=== PATIENT | female | born 1995 | race Caucasian/White ===

== ENCOUNTER 2019-04-06 13:26 | Emergency (ER) | payer OTHER ==
[2019-04-06 13:32] VITALS: BP 119/81; PULSE 85; TEMP 98; BMI 27.4
--- NOTE | 2019-04-06 14:00 | PDOC ---
History of Present Illness - General Chief Complaint: Injury Stated Complaint: RT HAND RING FINGER STUCK Time Seen by Provider: 04/06/19 13:37 Exam Limitations: No Limitations - History of Present Illness Initial Comments: 04/06/19 14:05 23 year old female with swelling to right ring finger due to ring being stuck on it since yesterday. Denies medical or surgical history, also reports no numbness or tingling to tips of fingers. Occurred: reports: yesterday Severity: reports: moderate Upper Extremity Pain Location: right: 4th finger Method of Injury: reports: other (ring) Modifying Factors: improves with: immobilization Extremity Pain Location - Extremity Pain Location Extremity Pain Locations: right: 4th finger Past History - Travel Traveled outside of the country in the last 30 days: No Close contact w/someone who was outside of country & ill: No - Past Medical History Allergies/Adverse Reactions: Allergies Allergy/AdvReac Type Severity Reaction Status Date / Time No Known Allergies Allergy Verified 04/06/19 13:32 Home Medications: Ambulatory Orders NK [No Known Home Medication] 08/22/17 COPD: No - Psycho Social/Smoking Cessation Hx Smoking History: Never smoked Hx Alcohol Use: No Drug/Substance Use Hx: No Review of Systems - Review of Systems Able to Perform ROS?: Yes Is the patient limited Belgian proficient: No Constitutional: No: Chills, Fever HEENTM: No: Cataracts, Ear Pain, Difficulty Swallowing Respiratory: No: Orthopnea, Stridor, Wheezing Cardiac (ROS): No: Chest Pain, Lightheadedness ABD/GI: No: Poor Appetite, Poor Fluid Intake : No: Dysuria, Incontinence, Testicular Swelling, Lesions Integumentary: Yes: Other (swelling of right 4th digit) Neurological: No: Headache, Numbness Psychiatric: No: Stressors, Change in Appetite *Physical Exam - Vital Signs Last Vital Signs Temp Pulse Resp BP Pulse Ox 98 F 85 18 119/81 99 04/06/19 13:29 04/06/19 13:29 04/06/19 13:29 04/06/19 13:29 04/06/19 13:29 - Physical Exam General Appearance: Yes: Nourished, Appropriately Dressed HEENT: positive: OTTO, TMs Normal, Pharynx Normal Neck: positive: Supple. negative: Lymphadenopathy (R), Lymphadenopathy (L) Respiratory/Chest: positive: Lungs Clear Cardiovascular: positive: Regular Rhythm, Regular Rate Extremity: positive: Normal Capillary Refill, Swelling (right 4th digit with silver band on finger) Neurologic: positive: Fully Oriented, Normal Response Medical Decision Making - Medical Decision Making 04/06/19 14:09 23 year old female with swelling to right ring finger due to ring being stuck on it since yesterday. Denies medical or surgical history, also reports no numbness or tingling to tips of fingers. swelling to right 4th finger -ring removed Discharge - Discharge Information Problems reviewed: Yes Clinical Impression/Diagnosis: Foreign body of finger of right hand Qualifiers: Encounter type: initial encounter Qualified Code(s): S60.459A - Superficial foreign body of unspecified finger, initial encounter Condition: Good Disposition: HOME - Admission No - Follow up/Referral - Patient Discharge Instructions - Post Discharge Activity Work/Back to School Note: Back to Work
== END 2019-04-06 14:06 | disposition home or self-care (01) ==
LOC: JERFT 13:26
DX: S60.444A External constriction of right ring finger, initial encounter (principal); W49.04XA Ring or other jewelry causing external constriction, initial encounter; Y93.89 Activity, other specified; Y92.038 Other place in apartment as the place of occurrence of the external cause; Y99.8 Other external cause status
CPT/HCPCS: 99281-25

== ENCOUNTER 2019-05-19 23:14 | Emergency (ER) | payer OTHER ==
[2019-05-19 23:26] VITALS: BP 137/92; PULSE 88; TEMP 98.5; BMI 26.6
[2019-05-20] MEDS ORDERED: ONDANSETRON 4 MG/2 ML VIAL IVPUSH ONE (00:17)
[2019-05-20] MEDS ORDERED: FAMOTIDINE 20 MG TABLET PO ONE (00:44)
[2019-05-20] MEDS ORDERED: ALBUTEROL SO4 2.5/IPRATROPIUM 0.5 INH SOL 3 ML VIAL.NEB. NEB ONE ×2 (00:44→00:52)
--- NOTE | 2019-05-20 00:46 | PDOC ---
Documentation entered by Kelsie Rivera SCRIBE, acting as scribe for Nhi Gaona MD. Nhi Gaona MD: This documentation has been prepared by the Nicole meyer Nirvannie, SCRIBE, under my direction and personally reviewed by me in its entirety. I confirm that the documentation accurately reflects all work, treatment, procedures, and medical decision making performed by me. Attending Attestation - Resident Resident Name: RigobertoFrederick - ED Attending Attestation I have performed the following: I have examined & evaluated the patient, The case was reviewed & discussed with the resident, I agree w/resident's findings & plan, Exceptions are as noted - HPI HPI: 05/20/19 01:01 The patient is a 23 year old female with no significant past medical history, who presents to the emergency department with 1 week of progressively worsening pleuritic chest pain and shortness of breath. As per patient, her symptoms have been worsening over the past two days. She notes associated nausea and diarrhea which has since resolved. She denies recent fevers, chills, headache or dizziness. She denies recent dysuria, frequency, urgency or hematuria. Allergies: NKDA - Physicial Exam PE: GENERAL: Awake, alert, and fully oriented, in no acute distress HEAD: No signs of trauma EYES: PERRLA, EOMI, sclera anicteric, conjunctiva clear ENT: Auricles normal inspection, hearing grossly normal, nares patent, oropharynx clear without exudates. Moist mucosa NECK: Normal ROM, supple, no lymphadenopathy, JVD, or masses LUNGS: Slightly decreased air entry B/L. Breath sounds clear to auscultation bilaterally. No wheezes, and no crackles HEART: Regular rate and rhythm, normal S1 and S2, no murmurs, rubs or gallops ABDOMEN: Soft, nontender, normoactive bowel sounds. No guarding, no rebound. No masses EXTREMITIES: Normal range of motion, no edema. No clubbing or cyanosis. No cords, erythema, or tenderness NEUROLOGICAL: Cranial nerves II through XII grossly intact. Normal speech, normal gait. Motor and sensation intact SKIN: Warm, dry, normal turgor, no rashes or lesions noted. - Medical Decision Making CXR reviewed, no acute findings. Symptoms are likely related to recent viral URI. Low risk for PE, ACS by clinical eval. Heart Score/ECG Review - ECG Impressions Comment:: EKG read 23:24- NSR 83 bpm, T wave inv V2, flattening in V3.
--- NOTE | 2019-05-20 00:51 | PDOC ---
History of Present Illness - General Stated Complaint: SOB Time Seen by Provider: 05/19/19 23:51 History Source: Patient Exam Limitations: No Limitations - History of Present Illness Initial Comments: 23 y/o F, no significant pmh, presents to the ED c/o of difficulty breathing, chest pain on inspiration and nausea of 1 week duration that has worsened in the last 2 days. As per pt, she came to the ED 1 week ago for chest pain on inspiration but eloped at the time. Her symptoms have been present since then. She did not take any medication for her symptoms. She also states that her nausea occurs every time she has acid reflux, which has increased in frequency recently. She has not been formally diagnosed with asthma or GERD. She admits to nausea, diarrhea which has now resolved. Denies f/c/v/abdominal pain, recent sick contacts, recent travels. 05/20/19 00:46 Associated Symptoms: reports: denies symptoms, chest pain (only on inspiration ) , nausea/vomiting, shortness of breath. denies: cough, diaphoresis, fever/ chills, headaches Past History - Past Medical History Allergies/Adverse Reactions: Allergies Allergy/AdvReac Type Severity Reaction Status Date / Time No Known Allergies Allergy Verified 05/19/19 23:27 Home Medications: Ambulatory Orders Albuterol Sulfate Inhaler - [Ventolin HFA Inhaler -] 1 - 2 inh PO Q4H #1 inhaler 05/20/19 COPD: No - Surgical History Appendectomy: Yes - Immunization History Immunization Up to Date: Yes - Psycho Social/Smoking Cessation Hx Smoking History: Never smoked Have you smoked in the past 12 months: No Hx Alcohol Use: No Drug/Substance Use Hx: No Review of Systems - Review of Systems Able to Perform ROS?: Yes Is the patient limited Hebrew proficient: No Constitutional: Yes: Symptoms Reported, Weight Stable. No: Chills, Diaphoresis , Fever HEENTM: Yes: Symptoms Reported. No: Eye Pain, Blurred Vision, Mouth Pain Respiratory: Yes: Symptoms reported, Cough (dry cough which has decreased in frequency ), Shortness of Breath. No: SOB with Exertion, SOB at Rest, Wheezing Cardiac (ROS): Yes: Symptoms Reported, Chest Pain (chest pain on inspiration) ABD/GI: Yes: Nausea. No: Abdominal Distended, Diarrhea, Vomiting : Yes: Symptoms Reported. No: Burning, Dysuria Musculoskeletal: Yes: Symptoms Reported. No: Neck Pain Neurological: Yes: Symptoms reported. No: Headache, Numbness All Other Systems: Reviewed and Negative *Physical Exam - Vital Signs Last Vital Signs Temp Pulse Resp BP Pulse Ox 98.5 F 88 22 H 137/92 96 05/19/19 23:19 05/19/19 23:19 05/19/19 23:19 05/19/19 23:19 05/19/19 23:19 - Physical Exam General Appearance: Yes: Nourished, Appropriately Dressed HEENT: positive: EOMI, OTTO, Normal ENT Inspection, Pharynx Normal, Nasal Congestion Neck: positive: Trachea midline, Normal Thyroid, Supple Respiratory/Chest: positive: Lungs Clear, Normal Breath Sounds. negative: Chest Tender (nonreproducible chest pain on inspiration), Crackles, Wheezing Cardiovascular: positive: Regular Rhythm, Regular Rate, S1, S2. negative: Murmur, Gallop/S3, Gallop/S4 Vascular Pulses: Dorsalis-Pedis (R): 2+, Doralis-Pedis (L): 2+ Gastrointestinal/Abdominal: positive: Normal Bowel Sounds, Soft. negative: Distended, Guarding, Tenderness Neurologic: positive: Fully Oriented, Alert ED Treatment Course - RADIOLOGY Radiology Studies Ordered: Category Date Time Status CHEST PA & LAT [RAD] Stat Radiology 05/20/19 00:12 Ordered Medical Decision Making - Medical Decision Making 23 y/o F, no significant pmh, presents to the ED c/o of difficulty breathing, chest pain on inspiration and nausea of 1 week duration that has worsened in the last 2 days #Difficulty breathing likely 2/2 to URI vs seasonal asthma CXR ordered Dounebs treatment Flu swab CBC Rapid strep ordered #Chest pain on inspiration likely 2/2 to coughing and acid reflux EKG NSR, nonspecific T wave changes #Nausea 2/2 to acid reflux Pepcid given Zofran 05/20/19 00:53 05/20/19 00:56 05/20/19 00:57 Discharge - Discharge Information Problems reviewed: Yes Clinical Impression/Diagnosis: Difficulty breathing Condition: Improved Disposition: HOME - Admission No - Additional Discharge Information Prescriptions: Albuterol Sulfate Inhaler - [Ventolin HFA Inhaler -] 1 - 2 inh PO Q4H #1 inhaler - Follow up/Referral Referrals: Demarcus Noriega MD [Staff Physician] - - Patient Discharge Instructions Patient Printed Discharge Instructions: DI for Gastroesophageal Reflux Disease (GERD), DI for Viral Upper Respiratory Infection -- Adult Additional Instructions: You were seen in the emergency room for difficulty with breathing and acid reflux While in the emergency room, we evaluated you with lab work, blood work, and imaging including x rays of your chest. We found that your symptoms were likely caused by an upper respiratory tract infection. Your nausea was caused by acid reflux. We gave you medications and your symptoms improved. Please take all your medications as prescribed Please follow up with your primary care physician in 1 week Return to the emergency room if you experience worsening of your symptoms, chest pain, difficulty breathing, or any worsening of your condition. - Post Discharge Activity
[2019-05-20] MEDS ORDERED: FAMOTIDINE 20 MG TABLET ONE (00:52)
--- NOTE | 2019-05-22 12:43 | EKG ---
Test Reason : Blood Pressure : / mmHG Vent. Rate : 083 BPM Atrial Rate : 083 BPM P-R Int : 152 ms QRS Dur : 088 ms QT Int : 374 ms P-R-T Axes : 055 066 058 degrees QTc Int : 439 ms NORMAL SINUS RHYTHM WITH SINUS ARRHYTHMIA NORMAL ECG WHEN COMPARED WITH ECG OF 22-AUG-2017 05:05, NO SIGNIFICANT CHANGE WAS FOUND Confirmed by MD Jefry, Jl ([id number]) on 05/22/2019 12:43:32 PM Referred By: Confirmed By:Jl Capps MD
== END 2019-05-20 01:57 | disposition home or self-care (01) ==
LOC: JER 23:14
PROC: 3E0F7GC Introduction of Other Therapeutic Substance into Respiratory Tract, Via Natural or Artificial Opening (ICD-10-PCS; principal; 2019-05-19)
DX: J06.9 Acute upper respiratory infection, unspecified (principal); K21.9 Gastro-esophageal reflux disease without esophagitis
CPT/HCPCS: 71046-TC-FY; 93005; 93010; 94640; 99282-25

== ENCOUNTER 2019-06-15 22:45 | Emergency (ER) | payer OTHER ==
[2019-06-15 22:53] VITALS: BP 137/85; PULSE 101; TEMP 98.4; BMI 25.7
--- NOTE | 2019-06-15 23:57 | PDOC ---
History of Present Illness - General Chief Complaint: Abscess Boil Stated Complaint: ABSCESS Time Seen by Provider: 06/15/19 23:57 - History of Present Illness Initial Comments: HPI: 23yo F with PMH of GERD presenting with abscess on her right buttock. Patient states she has had an abscess in this area before, last in summer 2018, and this abscess was drained by a physician. Her current abscess has not drained any discharge but has become increasingly tender over the last couple days. Currently on her menstrual period. No urinary or bowel complaints. No history of poor wound healing. Denies fever or chills. ROS: Constitutional: no fever, no chills HEENT: no throat pain, no dysphagia Cardiovascular: no chest pain, no palpitations Respiratory: no cough, no shortness of breath Gastrointestinal: no abdominal pain, no nausea Genitourinary: no dysuria, no hematuria Musculoskeletal: no myalgia, no arthralgia Skin: no rash, +abscess Neurologic: no headache, no weakness Psych: no agitation, no anxiety PE: General: Awake, alert, and fully oriented, in no acute distress Head: No signs of trauma Eyes: EOMI, sclera anicteric ENT: Moist mucus membranes Neck: Normal ROM, supple Lungs: Lungs clear, Normal breath sounds Cardio: Regular rhythm, S1 and S2 present Abdomen: Soft, nontender. No guarding, no rebound, no masses Extremities: Normal range of motion, Distal pulses present SKIN: Warm, Dry, normal turgor; 2.5cm area of erythema/tenderness/fluctuance to the right buttock in the gluteal fold without anorectal involvement, drainage, or head Neurologic: Cranial nerves II through XII grossly intact. Normal speech ED Course/MDM: DDX including but not limited to abscess, cellulitis, inflammation Presentation consistent with abscess Bedside US showing fluid-filled pocket, however area still appears deep Patient decided to defer I&D today and will instead soak for 2 days To return to ED for eventual I&D Antibiotics prescription sent to her pharmacy Return precautions Past History - Past Medical History Allergies/Adverse Reactions: Allergies Allergy/AdvReac Type Severity Reaction Status Date / Time No Known Allergies Allergy Verified 06/16/19 00:31 Home Medications: Ambulatory Orders Albuterol Sulfate Inhaler - [Ventolin HFA Inhaler -] 1 - 2 inh PO Q4H #1 inhaler 05/20/19 Clindamycin [Cleocin -] 300 mg PO TID #21 capsule 06/16/19 COPD: No GI Disorders: Yes (acid reflux) - Surgical History Appendectomy: Yes - Immunization History Immunization Up to Date: Yes - Psycho Social/Smoking Cessation Hx Smoking History: Never smoked Have you smoked in the past 12 months: No Hx Alcohol Use: No Drug/Substance Use Hx: No *Physical Exam - Vital Signs Last Vital Signs Temp Pulse Resp BP Pulse Ox 98.4 F 101 H 18 137/85 99 06/15/19 22:51 06/15/19 22:51 06/15/19 22:51 06/15/19 22:51 06/15/19 22:51 Discharge - Discharge Information Problems reviewed: Yes Clinical Impression/Diagnosis: Abscess Condition: Stable Disposition: HOME - Additional Discharge Information Prescriptions: Clindamycin [Cleocin -] 300 mg PO TID #21 capsule - Follow up/Referral - Patient Discharge Instructions Patient Printed Discharge Instructions: DI for Skin Abscess Additional Instructions: You came into the emergency department for a rectal abscess. We saw a pocket of fluid on the ultrasound but the area was still somewhat deep. You declined drainage today. Use [id number] sitz baths at home to provide comfort and help with the abscess. Antibiotics sent to your pharmacy. Take as instructed. This will help prevent infection but will not make the abscess go away. You can take [id number]-[id number] tylenol or motrin for pain. Follow the instructions on the medication bottle. Return to the emergency department in two days for abscess drainage. Immediate medical attention is required if you experience: profuse bleeding, fever or chills, or any new or concerning symptoms. If you think there is an emergency, call for emergency medical services or present to the emergency department right away - Post Discharge Activity Work/Back to School Note: Back to Work
--- NOTE | 2019-06-15 23:59 | PDOC ---
Attending Attestation - Resident Resident Name: Nhi Cabrera - ED Attending Attestation I have performed the following: I have examined & evaluated the patient, The case was reviewed & discussed with the resident, I agree w/resident's findings & plan - HPI HPI: 06/16/19 01:08 see resident hpi - Physicial Exam PE: 06/16/19 01:08 agree with resident exam - Medical Decision Making 06/16/19 01:09 23-year-old female with pain and tenderness to the right buttock without anal/ rectal involvement Bedside ultrasound confirmed likely fluid-filled pocket, most likely consistent with abscess Overlying skin is normal without pointing Patient was given the option of I&D today or soaking for 2 days and returning for I&D when more localized, she has opted to return She was advised that antibiotics will not cure this problem and it will require drainage at some point DC on clindamycin
== END 2019-06-16 01:28 | disposition home or self-care (01) ==
LOC: JER 22:45
PROC: BW4GZZZ Ultrasonography of Pelvic Region (ICD-10-PCS; principal; 2019-06-15)
DX: L02.31 Cutaneous abscess of buttock (principal)
CPT/HCPCS: 76857; 99282-25

== ENCOUNTER 2020-01-13 01:26 | Emergency (ER) | payer OTHER ==
[2020-01-13 01:48] VITALS: BP 123/85; PULSE 93; TEMP 100.1; BMI 23.3
--- NOTE | 2020-01-13 02:15 | PDOC ---
History of Present Illness - General Chief Complaint: Chest Pain Stated Complaint: CHEST PAIN Time Seen by Provider: 01/13/20 02:11 History Source: Patient Exam Limitations: No Limitations - History of Present Illness Initial Comments: 01/13/20 02:15 HPI: 24 yo F pmh GERD presenting with 1 month of reproducible left chest pain. Pain is sharp, non-pleuritic, non-exertional, improves with aspirin, minimal improvement with advil. Reproduced with pressure over the affected area. No family history of cardiac disease. No shortness of breath, fevers, chills, nausea, vomiting, abdominal pain, no recent GERD. No smoking, no hemoptysis, no leg pain or swelling, no immobilization, no OCPs / estrogen containing medications. Meds: Denies All: NKDA PMH: GERD PSH: Appendectomy remote SHx: Denies smoking, ETOH, Illicits Past History - Travel History Traveled outside of the country in the last 30 days: No Close contact w/someone who was outside of country & ill: No - Medical History Allergies/Adverse Reactions: Allergies Allergy/AdvReac Type Severity Reaction Status Date / Time candywi Allergy Verified 01/13/20 01:46 Home Medications: Ambulatory Orders Albuterol Sulfate Inhaler - [Ventolin HFA Inhaler -] 1 - 2 inh PO Q4H #1 inhaler 05/20/19 Clindamycin [Cleocin -] 300 mg PO TID #21 capsule 06/16/19 COPD: No GI Disorders: Yes (acid reflux) - Surgical History Appendectomy: Yes - Reproductive History Is Patient Now?: No - Immunization History Immunization Up to Date: Yes - Psycho-Social/Smoking History Smoking History: Never smoked Have you smoked in the past 12 months: No - Substance Abuse Hx (Audit-C & DAST Scrn) How often the patient has a drink containing alcohol: Monthly or less Score: In Men: 4 or > Positive; In Women: 3 or > Positive: 1 Screen Result (Pos requires Nsg. Audit-10AR): Negative Review of Systems - Review of Systems Able to Perform ROS?: Yes Is the patient limited Botswanan proficient: Yes Constitutional: No: Chills, Fever, Weakness HEENTM: No: Recent change in vision, Nose Congestion, Throat Pain Respiratory: No: Cough, Shortness of Breath, Wheezing Cardiac (ROS): Yes: Chest Pain. No: Edema, Irregular Heart Rate, Lightheadedness, Palpitations, Syncope, Chest Tightness ABD/GI: No: Constipated, Diarrhea, Nausea, Vomiting : No: Burning, Dysuria, Frequency Musculoskeletal: Yes: Back Pain, Muscle Pain. No: Muscle Weakness, Neck Pain Integumentary: No: Bruising, Pruritus, Rash Neurological: No: Headache, Numbness, Tingling, Weakness Psychiatric: No: Anxiety, Depression, Stressors, Change in Appetite Endocrine: No: Increased Thirst, Increased Urine, Change in Weight Hematologic/Lymphatic: No: Anemia, Blood Clots, Easy Bleeding All Other Systems: Reviewed and Negative *Physical Exam - Vital Signs Last Vital Signs Temp Pulse Resp BP Pulse Ox 100.1 F H 93 H 18 123/85 97 01/13/20 01:43 01/13/20 01:43 01/13/20 01:43 01/13/20 01:43 01/13/20 01:43 - Physical Exam 01/13/20 03:19 Vitals reviewed, AFVSS GEN: Well appearing, appears stated age, NAD, comfortable. AAOx3. HEENT: NCAT, EOMI, PERRL. Sclera anicteric, noninjected. No facial asymmetry. Moist mucous membranes. Normal voice. Trachea midline. CV: RRR, S1/S2, no murmurs / rubs / gallops appreciated. LUNG: CTABL, normal work of breathing. No wheezes, rales, rhonchi. No cough. Speaking full sentences. GI: Soft, NTND, +BS, no guarding, no rebound. No masses. EXTREMITIES: 2+ distal pulses. No clubbing / cyanosis / edema. No gross deformity in any extremity. SKIN: Warm, dry, no rashes appreciated, non-jaundiced. PSYCH: Normal mood and affect. Cooperative and appropriate. NEURO: CN grossly intact. Moving all extremities well. Normal strength and sensation grossly. Medical Decision Making - Medical Decision Making 01/13/20 03:19 24 yo F pmh GERD presenting with 1 month of reproducible left chest pain. History notable for no medical history, 1 month of unchanged symptoms, relief wi th pain medication. Exam notable for stable vitals, reproducible chest wall tenderness. Most likely msk pain vs costochondritis, highly unlikely pneumothorax, infectious, ACS, PERCs out of PE. - CXR (no pneumothorax, effusion, infiltrate) - EKG (unchanged from prior) - Toradol 15 mg IM - Flexeril Dispo: Home Discharge - Discharge Information Problems reviewed: Yes Clinical Impression/Diagnosis: Atypical chest pain Condition: Good Disposition: HOME - Admission No - Follow up/Referral - Patient Discharge Instructions Patient Printed Discharge Instructions: DI for Atypical Chest Pain, DI for Costochondritis Additional Instructions: You were seen and evaluated for chest pain. Your chest xray and EKG were reassuring. You were treated with Toradol and Flexeril. Follow up with your primary care doctor within 1 week for continued care. Return to the ED for any new or concerning symptoms. - Post Discharge Activity
--- NOTE | 2020-01-13 02:51 | PDOC ---
Attending Attestation - Resident Resident Name: Rasta Benavides - ED Attending Attestation I have performed the following: I have examined & evaluated the patient, The case was reviewed & discussed with the resident, I agree w/resident's findings & plan - HPI HPI: 01/13/20 03:16 Pt comes with reproducible CP. She has no fever and no cough and she has no smoking history and no asthma. Pt lifted a heavy bucket of water. She was also playing with her niece and her niece tugged her left arm, now with pain in the left side of chest. 01/13/20 03:45 Pt points to her costochondral/sternal margin as the area of pain. Pt has been having this pain for a month and she states that asa works best for the pain - Physicial Exam PE: 01/13/20 03:47 Normal exam point tenderness of the costo/sternal border Pt has normal heart sounds and lung sounds rest of exam normal - Medical Decision Making 01/13/20 03:19 Pt's EKG is the same as old 01/13/20 03:48 Pt will follow with PMD CXR normal Pt will be treated with analgesics. 01/13/20 03:51 Stable for d/c home Discharge - Discharge Information Problems reviewed: Yes Clinical Impression/Diagnosis: Atypical chest pain, Costochondritis, acute Condition: Good Disposition: HOME - Additional Discharge Information Prescriptions: Cyclobenzaprine HCl [Flexeril 10 mg] 10 mg PO BID #30 tablet MDD 2 Lidocaine 5% Patch [Lidoderm Patch -] 1 patch TP DAILY #30 patch - Follow up/Referral - Patient Discharge Instructions Patient Printed Discharge Instructions: DI for Atypical Chest Pain, DI for Costochondritis Additional Instructions: You were seen and evaluated for chest pain. Your chest xray and EKG were reassuring. You were treated with Toradol and Flexeril. Follow up with your primary care doctor within 1 week for continued care. Return to the ED for any new or concerning symptoms. - Post Discharge Activity
[2020-01-13] MEDS ORDERED: KETOROLAC TROMETHAMINE 15 MG/ML VIAL IM ONE (03:16)
[2020-01-13] MEDS ORDERED: CYCLOBENZAPRINE HCL 5 MG TABLET PO ONE (03:17)
[2020-01-13] MEDS ORDERED: LIDOCAINE 5% TOPICAL PATCH TP ONE (03:18)
[2020-01-13] MEDS ORDERED: KETOROLAC TROMETHAMINE 15 MG/ML VIAL ONE (03:59)
[2020-01-13] MEDS ORDERED: LIDOCAINE 5% TOPICAL PATCH ONE (03:59)
[2020-01-13] MEDS ORDERED: CYCLOBENZAPRINE HCL 10 MG TABLET (FP) ONE (03:59)
--- NOTE | 2020-01-13 12:41 | EKG ---
Test Reason : Blood Pressure : / mmHG Vent. Rate : 092 BPM Atrial Rate : 092 BPM P-R Int : 142 ms QRS Dur : 086 ms QT Int : 380 ms P-R-T Axes : 046 035 025 degrees QTc Int : 469 ms NORMAL SINUS RHYTHM NORMAL ECG WHEN COMPARED WITH ECG OF 19-MAY-2019 23:18, NO SIGNIFICANT CHANGE WAS FOUND Confirmed by Al Marin ([id number]) on 01/13/2020 12:40:37 PM Referred By: Confirmed By:Al Marin
[2020-01-13] MEDS ORDERED: LIDOCAINE PATCH REMOVAL MC SCH (22:00)
== END 2020-01-13 04:06 | disposition home or self-care (01) ==
LOC: JER 01:26
PROC: 3E0233Z Introduction of Anti-inflammatory into Muscle, Percutaneous Approach (ICD-10-PCS; principal; 2020-01-13)
DX: R07.89 Other chest pain (principal)
CPT/HCPCS: 71046-TC-FY; 93005; 93010; 99284-25

== ENCOUNTER 2023-08-16 09:59 | Emergency (ER) | payer OTHER ==
[2023-08-16 10:27] VITALS: BP 126/87; PULSE 95; RESP 18; TEMP 98.3; BMI 27.4
[2023-08-16] MEDS ORDERED: DEXAMETHASONE SOD PHOSPHATE 10 MG/1 ML VIAL ONE (12:27)
[2023-08-16] MEDS ORDERED: ACETAMINOPHEN 325 MG TABLET (FP) ONE (12:27)
[2023-08-16] MEDS: ACETAMINOPHEN 500 MG TABLET (FP) PO ONE (12:31)
[2023-08-16] MEDS: DEXAMETHASONE SOD PHOSPHATE 10 MG/1 ML VIAL PO ONE (12:31)
== END 2023-08-16 13:00 | disposition home or self-care (01) ==
LOC: JERFT 09:59
DX: L02.11 Cutaneous abscess of neck (principal); R50.9 Fever, unspecified; J02.8 Acute pharyngitis due to other specified organisms; Z20.822 Contact with and (suspected) exposure to COVID-19
CPT/HCPCS: 0241U-QW; 87651; 99283-25; J1100